=== PATIENT | female | born 1960 | race Caucasian/White ===

== ENCOUNTER 2017-07-21 13:38 | Outpatient (CLI) | payer BC ==
--- NOTE | 2017-07-21 16:25 | ULT ---
THYROID ULTRASOUND: HISTORY: Postprocedural hypothyroidism. COMPARISON: None. TECHNIQUE: Sagittal and transverse imaging of thyroid gland is performed. FINDINGS: Thyroid isthmus 0.21 cm. The right thyroid lobe is surgically absent. Removal in 2009. Left thyroi d lobe measures 4.3 x 1.8 x 1.8 cm. There is a dominant solid nodule in the left thyroid lobe measur ing 2.3 x 1.6 x 1.6 cm. IMPRESSION: Thyroid calculator score of TR3, mildly suspicious. Given size of lesion, fine needle aspiration is recommended. POS: LC
== END 2017-07-21 13:39 | disposition home or self-care (01) ==
LOC: ULT 13:38
PROVIDERS: ATTEND Internal Medicine
DX: E89.0 Postprocedural hypothyroidism (principal)
CPT/HCPCS: 76536

== ENCOUNTER 2018-09-18 13:54 | Outpatient (CLI) | payer BC ==
--- NOTE | 2018-09-18 14:33 | ULT ---
US Thyroid STANDARD HISTORY: Follow-up of thyroid nodule COMPARISON: 07/21/2017 study. FINDINGS: Real-time imaging of the right and left lobes of the gland were performed. The right lobe h as been removed and no residual tissue is seen in this region. On the left side the gland measures 1.9 x 1.9 x 4.3 cm. There is a 1.4 x 2.2 cm solid nodule, this ap pears stable in size as compared to the prior exam. Other smaller complex cystic lesions are also incidentally noted. IMPRESSION: 1. Post right thyroid lobectomy. 2. Stable left lobe thyroid nodule.
== END 2018-09-18 13:55 | disposition home or self-care (01) ==
LOC: SCSULT 13:54
PROVIDERS: ATTEND Otolaryngology Plastic Surgery within the Head & Neck
DX: D49.7 Neoplasm of unspecified behavior of endocrine glands and other parts of nervous system (principal); E04.1 Nontoxic single thyroid nodule; Z90.89 Acquired absence of other organs
CPT/HCPCS: 76536